=== PATIENT | male | born 1955 | race African-American/Black ===

== ENCOUNTER 2018-09-15 00:23 | Inpatient (IN) ==
[2018-09-15] MEDS ORDERED: ONDANSETRON 4 MG/2 ML VIAL IV STA (00:55)
[2018-09-15 01:16] LABS: PT Patient Result 10.7 SECS
[2018-09-15 01:26] LABS: Basophils % 0.2 % (0.0-0.8); Eosinophils # 0.1 10*3/uL (0.0-0.87); Eosinophils % 0.5 % (0.00-10.9); Hematocrit 34.2 VOL% (42.0-52.0); Hemoglobin 10.6 GM/DL (14.0-18.0); Immature Granulocytes % 0.6 %; Immature Granulocytes Absolute 0.08 #; Lymphocytes # 0.5 10*3/uL (1.4-4.0); Mean Corpuscular Volume 82.2 FL (87-102); Mean Platelet Volume 11.9 FL (9.6-12.0); Monocytes % 11.3 % (1.7-12.7); Neutrophils % 83.4 % (38.7-73.9); Platelet Count 134 T/CUMM (130-400); Red Blood Count 4.16 MC/CUMM (3.8-5.5); Red Cell Distribution Width 15.2 % (9.3-17.3); White Blood Count 12.4 T/CUMM (4-12)
[2018-09-15 01:43] LABS: Anisocytosis 1+; Band Neutrophils 5 % (0-10); Lymphocytes 5 % (20-55); Segmented Neutrophils 84 % (50-85); Total Cells Counted 100
[2018-09-15 01:44] LABS: Platelet Estimate Adequate
[2018-09-15 01:50] LABS: Apearance,Urine CLEAR (Clear); Bilirubin,Urine Negative (Negative); Blood, Urine Negative (Negative); Glucose,Urine (UA) >=500 mg/dL (Negative); Ketones,Urine Negative (Negative); Mucus,Urine Occasional /LPF (Occasional); Nitrite,Urine Negative (Negative); Protein,Urine Negative; RBC,Urine <1 /HPF (0-4); Urine Color Straw (Yellow); Urine Specific Gravity 1.026 (1.001-1.035); Urine Urobilinogen < 2.0 EU/DL (0.2-1.0); WBC,Urine <1 /HPF (0-6)
[2018-09-15 02:03] LABS: Alanine Aminotransferase 21 U/L (16-61); Albumin 3.1 G/DL (3.4-5.0); Alkaline Phosphatase 62 U/L (45-117); Aspartate Amino Transferase 19 U/L (0-37); Blood Urea Nitrogen 25 MG/DL (7-18); Calcium 9.2 MG/DL (8.5-10.1); Free T4 (Free Thyroxine) 1.08 NG/DL (0.76-1.46); Glucose 313 MG/DL (74-106); Osmolality,Calculated 283.2 MOS/KG (273-304); Total Protein 7.4 G/DL (6.4-8.3)
[2018-09-15 02:03] LABS: Barbiturates Screen,Urine Negative (Negative); Benzodiazepines Screen,Urine Negative (Negative); Cannabinoid Screen,Urine Negative (Negative); Opiate Screen,Urine Negative (Negative); Phencyclidine Screen,Urine Negative (Negative)
[2018-09-15 02:14] LABS: Troponin I 0.127 NG/ML (0.00-0.045)
[2018-09-15] MEDS ORDERED: ACETAMINOPHEN 325 MG TABLET PO PRN (02:45)
[2018-09-15] MEDS ORDERED: ONDANSETRON 4 MG/2 ML VIAL IV PRN (02:45)
[2018-09-15] MEDS ORDERED: DOCUSATE SODIUM 100 MG CAPSULE PO PRN (02:45)
[2018-09-15] MEDS ORDERED: PROMETHAZINE 25 MG TABLET PO PRN (02:45)
[2018-09-15] MEDS ORDERED: ZALEPLON 5 MG CAPSULE PO PRN (02:45)
[2018-09-15 05:40] LABS: Albumin 3.3 G/DL (3.4-5.0); Bilirubin,Total 0.7 MG/DL (0.2-1.0); Calcium 9.6 MG/DL (8.5-10.1); Total Protein 7.7 G/DL (6.4-8.3)
[2018-09-15] MEDS ORDERED: NITROGLYCERIN SL 0.4 MG TABLET SL PRN (06:40)
[2018-09-15] MEDS ORDERED: hydroCHLOROthiazide 25 MG TABLET PO SCH (09:00)
[2018-09-15] MEDS: CARVEDILOL 25 MG TABLET PO SCH ×2 (09:40→21:12)
[2018-09-15] MEDS: CLOPIDOGREL 75 MG TABLET PO SCH (09:40)
[2018-09-15] MEDS: PANTOPRAZOLE 40 MG TABLET PO SCH (09:40)
[2018-09-15] MEDS: ASPIRIN EC 81 MG TABLET PO SCH (09:41)
[2018-09-15] MEDS: FUROSEMIDE 40 MG TABLET PO SCH ×2 (09:41→17:24)
[2018-09-15] MEDS: CILOSTAZOL 100 MG TABLET PO SCH ×2 (09:41→21:12)
[2018-09-15] MEDS: amLODIPine 5 MG TABLET PO SCH (09:41)
[2018-09-15] MEDS: DULoxetine 30 MG CAPSULE PO SCH ×2 (09:41→21:12)
[2018-09-15] MEDS: INSULIN GLARGINE 100 UNIT/ML SUBCUT SCH ×2 (09:46→21:13)
[2018-09-15] MEDS ORDERED: INSULIN LISPRO 100 UNIT/ML SUBCUT SCH (11:30)
[2018-09-15] MEDS: PIPERACILLIN/TAZOBACTAM 3,375 MG in SODIUM CHLORIDE 0.9% 100 ML IV SCH ×3 (12:28→21:15)
[2018-09-15] MEDS: INSULIN LISPRO 100 UNIT/ML SUBCUT SCH ×3 (12:28→21:13)
[2018-09-15] MEDS: RIVAROXABAN 20 MG TABLET PO SCH (17:24)
[2018-09-15] MEDS: LATANOPROST 0.005% OPH SOLN 2.5 ML BOTTLE BOTH EYES SCH (21:12)
[2018-09-15] MEDS: ATORVASTATIN 40 MG TABLET PO SCH (21:12)
[2018-09-15] MEDS: PARoxetine 20 MG TABLET PO SCH (21:12)
[2018-09-16] MEDS: PIPERACILLIN/TAZOBACTAM 3,375 MG in SODIUM CHLORIDE 0.9% 100 ML IV SCH ×3 (04:48→21:55)
[2018-09-16] MEDS ORDERED: BUPIVACAINE MPF 0.25% /EPI 30 ML VIAL ONE (07:52)
[2018-09-16] MEDS ORDERED: LIDOCAINE 1%/EPI INJ 20 ML VIAL ONE (07:53)
[2018-09-16] MEDS: FUROSEMIDE 40 MG TABLET PO SCH ×2 (08:00→17:29)
[2018-09-16] MEDS: INSULIN LISPRO 100 UNIT/ML SUBCUT SCH ×4 (08:01→21:55)
[2018-09-16] MEDS: CARVEDILOL 25 MG TABLET PO SCH ×2 (08:02→21:54)
[2018-09-16] MEDS: amLODIPine 5 MG TABLET PO SCH (08:02)
[2018-09-16] MEDS ORDERED: LACTATED RINGERS 1,000 ML IV SCH (08:30)
[2018-09-16] MEDS: CILOSTAZOL 100 MG TABLET PO SCH ×2 (09:00→21:54)
[2018-09-16] MEDS: DULoxetine 30 MG CAPSULE PO SCH ×2 (09:00→21:53)
[2018-09-16] MEDS: CLOPIDOGREL 75 MG TABLET PO SCH (09:00)
[2018-09-16] MEDS: INSULIN GLARGINE 100 UNIT/ML SUBCUT SCH ×2 (09:00→21:54)
[2018-09-16] MEDS ORDERED: SEVOFLURANE 1 UNIT/15 MINUTE INH ONE (09:27)
[2018-09-16] MEDS ORDERED: PROPOFOL 200 MG/20 ML VIAL IV ONE (09:27)
[2018-09-16] MEDS ORDERED: MIDAZOLAM 2 MG/2 ML VIAL ONE (09:27)
[2018-09-16] MEDS ORDERED: ETOMIDATE 40 MG/20 ML VIAL IV ONE (09:28)
[2018-09-16] MEDS ORDERED: fentaNYL 100 MCG/2 ML VIAL ONE (09:28)
[2018-09-16] MEDS ORDERED: SUCCINYLCHOLINE 200 MG/10 ML VIAL ONE (09:28)
[2018-09-16] MEDS ORDERED: ROCURONIUM 100 MG/10 ML VIAL IV ONE (09:28)
[2018-09-16] MEDS: PANTOPRAZOLE 40 MG TABLET PO SCH (14:01)
[2018-09-16] MEDS: ASPIRIN EC 81 MG TABLET PO SCH (14:01)
[2018-09-16] MEDS: RIVAROXABAN 20 MG TABLET PO SCH (17:28)
[2018-09-16] MEDS: PARoxetine 20 MG TABLET PO SCH (21:53)
[2018-09-16] MEDS: ATORVASTATIN 40 MG TABLET PO SCH (21:54)
[2018-09-16] MEDS: LATANOPROST 0.005% OPH SOLN 2.5 ML BOTTLE BOTH EYES SCH (21:58)
[2018-09-17] MEDS: PIPERACILLIN/TAZOBACTAM 3,375 MG in SODIUM CHLORIDE 0.9% 100 ML IV SCH ×3 (04:51→20:34)
[2018-09-17] MEDS: INSULIN GLARGINE 100 UNIT/ML SUBCUT SCH ×2 (08:50→20:34)
[2018-09-17] MEDS: INSULIN LISPRO 100 UNIT/ML SUBCUT SCH ×4 (08:52→20:33)
[2018-09-17] MEDS: ASPIRIN EC 81 MG TABLET PO SCH (08:53)
[2018-09-17] MEDS: CARVEDILOL 25 MG TABLET PO SCH ×2 (08:53→20:33)
[2018-09-17] MEDS: DULoxetine 30 MG CAPSULE PO SCH ×2 (08:53→20:32)
[2018-09-17] MEDS: FUROSEMIDE 40 MG TABLET PO SCH ×2 (08:53→17:19)
[2018-09-17] MEDS: amLODIPine 5 MG TABLET PO SCH (08:54)
[2018-09-17] MEDS: PANTOPRAZOLE 40 MG TABLET PO SCH (08:54)
[2018-09-17] MEDS: CLOPIDOGREL 75 MG TABLET PO SCH (08:54)
[2018-09-17] MEDS: QUINAPRIL 20 MG TABLET PO SCH ×2 (09:55→20:32)
[2018-09-17] MEDS: RIVAROXABAN 20 MG TABLET PO SCH (17:19)
[2018-09-17] MEDS: PARoxetine 20 MG TABLET PO SCH (20:32)
[2018-09-17] MEDS: ATORVASTATIN 40 MG TABLET PO SCH (20:33)
[2018-09-17] MEDS: FLUoxetine 20 MG CAPSULE PO SCH (20:33)
[2018-09-17] MEDS: LATANOPROST 0.005% OPH SOLN 2.5 ML BOTTLE BOTH EYES SCH (20:33)
[2018-09-18] MEDS: PIPERACILLIN/TAZOBACTAM 3,375 MG in SODIUM CHLORIDE 0.9% 100 ML IV SCH (05:04)
[2018-09-18] MEDS: INSULIN LISPRO 100 UNIT/ML SUBCUT SCH ×4 (08:49→21:02)
[2018-09-18] MEDS: INSULIN GLARGINE 100 UNIT/ML SUBCUT SCH ×2 (08:50→21:01)
[2018-09-18] MEDS: ASPIRIN EC 81 MG TABLET PO SCH (08:50)
[2018-09-18] MEDS: CARVEDILOL 25 MG TABLET PO SCH ×2 (08:51→21:01)
[2018-09-18] MEDS: DULoxetine 30 MG CAPSULE PO SCH ×2 (08:51→21:01)
[2018-09-18] MEDS: CLOPIDOGREL 75 MG TABLET PO SCH (08:51)
[2018-09-18] MEDS: FUROSEMIDE 40 MG TABLET PO SCH ×2 (08:51→17:20)
[2018-09-18] MEDS: amLODIPine 5 MG TABLET PO SCH (08:51)
[2018-09-18] MEDS: PANTOPRAZOLE 40 MG TABLET PO SCH (09:25)
[2018-09-18] MEDS: QUINAPRIL 20 MG TABLET PO SCH ×2 (09:25→21:00)
[2018-09-18] MEDS: CLINDAMYCIN INJ 600 MG in PREMIX 1 EACH IV SCH ×2 (12:31→20:56)
[2018-09-18] MEDS: RIVAROXABAN 20 MG TABLET PO SCH (17:20)
[2018-09-18] MEDS: PARoxetine 20 MG TABLET PO SCH (21:00)
[2018-09-18] MEDS: FLUoxetine 20 MG CAPSULE PO SCH (21:00)
[2018-09-18] MEDS: LATANOPROST 0.005% OPH SOLN 2.5 ML BOTTLE BOTH EYES SCH (21:01)
[2018-09-18] MEDS: ATORVASTATIN 40 MG TABLET PO SCH (21:01)
[2018-09-19] MEDS: CLINDAMYCIN INJ 600 MG in PREMIX 1 EACH IV SCH ×2 (04:17→13:08)
[2018-09-19 05:30] LABS: Basophils % 0.5 % (0.0-0.8); Eosinophils # 0.3 10*3/uL (0.0-0.87); Eosinophils % 3.6 % (0.00-10.9); Hematocrit 40.1 VOL% (42.0-52.0); Hemoglobin 12.2 GM/DL (14.0-18.0); Immature Granulocytes % 1.1 %; Immature Granulocytes Absolute 0.09 #; Lymphocytes # 0.9 10*3/uL (1.4-4.0); Lymphocytes % 11.1 % (21.2-54.2); Mean Corpuscular HGB Conc 30.4 GM/DL (32-36); Mean Platelet Volume 11.9 FL (9.6-12.0); Monocytes % 13.1 % (1.7-12.7); Neutrophils % 70.6 % (38.7-73.9); Platelet Count 237 T/CUMM (130-400); Red Blood Count 4.83 MC/CUMM (3.8-5.5); White Blood Count 8.3 T/CUMM (4-12)
[2018-09-19 06:00] LABS: Calcium 9.5 MG/DL (8.5-10.1); Osmolality,Calculated 286.3 MOS/KG (273-304)
[2018-09-19] MEDS: INSULIN LISPRO 100 UNIT/ML SUBCUT SCH ×3 (08:15→17:13)
[2018-09-19] MEDS: INSULIN GLARGINE 100 UNIT/ML SUBCUT SCH (09:08)
[2018-09-19] MEDS: DULoxetine 30 MG CAPSULE PO SCH (09:08)
[2018-09-19] MEDS: PANTOPRAZOLE 40 MG TABLET PO SCH (09:08)
[2018-09-19] MEDS: amLODIPine 5 MG TABLET PO SCH (09:08)
[2018-09-19] MEDS: CARVEDILOL 25 MG TABLET PO SCH (09:08)
[2018-09-19] MEDS: ASPIRIN EC 81 MG TABLET PO SCH (09:08)
[2018-09-19] MEDS: FUROSEMIDE 40 MG TABLET PO SCH ×2 (09:08→17:13)
[2018-09-19] MEDS: CLOPIDOGREL 75 MG TABLET PO SCH (09:08)
[2018-09-19] MEDS: QUINAPRIL 20 MG TABLET PO SCH (09:10)
[2018-09-19] MEDS ORDERED: MAGNESIUM HYDROXIDE SUSP 30 ML UDCUP PO PRN (12:24)
[2018-09-19] MEDS: RIVAROXABAN 20 MG TABLET PO SCH (17:13)
[2018-09-19 20:04] VITALS: BP 146/70
== END 2018-09-19 17:48 | disposition home health service (06) | DRG 223 ==
LOC: EDBD → EDUNIT# → N.EDINP 00:23 → N.ED 00:23 → N.3E 03:38 → SUATTDRO 11:22
PROVIDERS: ADMIT Internal Medicine; ATTEND Internal Medicine